=== PATIENT | male | born 1955 | race Caucasian/White ===

== ENCOUNTER 2023-12-30 07:57 | Inpatient (IN) | payer MEDICAID ==
[2023-12-30] VITALS (10 sets, daily range): BP systolic 126–180; BP diastolic 68–113; PULSE 56–104; RESP 16–20; TEMP 97.3–98; O2SAT 94–100
[~2023-12-30] VITALS: Ht 170.2 cm; Wt 58.5 kg
[2023-12-30] MEDS: FUROSEMIDE 40 MG/4 ML VIAL IVP ONE (08:40)
[2023-12-30 09:05] LABS: BLOOD GAS BASE EXCESS -0.2 mmol/L (-2.0-2.0); BLOOD GAS HCO3 23.3 mmol/L (22-26); BLOOD GAS O2 SAT% 99.3 % (92.0-98.5); BLOOD GAS PCO2 33.8 mmHg (35-45); BLOOD GAS PH 7.456 (7.35-7.45); BLOOD GAS PO2 148.1 mmHg (75-100)
[2023-12-30] MEDS ORDERED: cefTRIAXone 1,000 MG VIAL ONE (09:07)
[2023-12-30] MEDS ORDERED: AZITHROMYCIN 500 MG INJ VIAL IV ONE (09:07)
[2023-12-30] MEDS: AZITHROMYCIN 500 MG in DEXTROSE 5% 250 ML IV ONE (09:20)
[2023-12-30] MEDS: methylPREDNISolone SS 125 MG/2 ML VIAL IVP ONE (09:20)
[2023-12-30] MEDS: ALBUTEROL SULFATE/IPRATROPIU 3 ML SOL IH ONE (09:22)
[2023-12-30 09:24] LABS: BASOPHILS # (AUTO) 0.1 K/uL (0.00-0.22); BASOPHILS % (AUTO) 1.2 % (0.0-2.0); EOSINOPHILS # (AUTO) 0.3 K/uL (0-0.4); EOSINOPHILS % (AUTO) 3.1 % (0.0-4.0); HEMATOCRIT 31.4 % (36-52); HEMOGLOBIN 9.8 g/dL (12.0-18.0); LYMPHOCYTES # (AUTO) 0.7 K/uL (2.0-11.5); LYMPHOCYTES % (AUTO) 6.5 % (20.5-51.1); MEAN CORPUSCULAR HEMOGLOBIN 26 pg (27-31); MEAN CORPUSCULAR HGB CONC 31 g/dL (33-37); MEAN CORPUSCULAR VOLUME 83.7 fL (80-94); MONOCYTES # (AUTO) 0.7 K/uL (0.8-1.0); MONOCYTES % (AUTO) 6.5 % (1.7-9.3); NEUTROPHILS # (AUTO) 8.9 K/uL (1.8-7.7); NEUTROPHILS % (AUTO) 82.7 % (42.2-75.2); PLATELET COUNT (AUTO) 265 K/uL (140-450); RED BLOOD CELL COUNT(AUTO) 3.76 MIL/uL (4.20-6.10); RED CELL DISTRIBUTION WIDTH 18.3 % (11.6-13.7); WHITE BLOOD COUNT (AUTO) 10.7 K/uL (4.8-10.8)
[2023-12-30 09:46] LABS: ALBUMIN 2.6 g/dL (3.4-5.0); ANION GAP 14.5 (8-16); CALCIUM 7.8 mg/dL (8.5-10.1); CREATININE 3.8 mg/dL (0.6-1.3); POTASSIUM 4.5 mmol/L (3.5-5.1); TOTAL PROTEIN, SERUM 6.4 g/dL (6.4-8.2)
[2023-12-30 09:58] LABS: LACTIC ACID 0.9 mmol/L (0.4-2.0)
[2023-12-30] MEDS ORDERED: CLOP75TA55 PO (10:42)
[2023-12-30] MEDS ORDERED: FURO40TA9 PO (10:42)
[2023-12-30] MEDS ORDERED: SPIMDI INH (10:42)
[2023-12-30] MEDS ORDERED: NITR0.4T2 SL (10:42)
[2023-12-30] MEDS ORDERED: FLONAS NS (10:42)
[2023-12-30] MEDS ORDERED: ISOS20TA PO (10:42)
[2023-12-30] MEDS ORDERED: EZET10TA50 PO (10:42)
[2023-12-30] MEDS ORDERED: CARV6.25 PO (10:42)
[2023-12-30] MEDS ORDERED: DAPA10TA PO (10:42)
[2023-12-30] MEDS ORDERED: BUDE1AER IH (10:42)
[2023-12-30] MEDS ORDERED: ALBU0.0912 INH (10:42)
[2023-12-30] MEDS ORDERED: ASPI-1749 PO (10:42)
[2023-12-30] MEDS ORDERED: ATOR40TA PO (10:42)
[2023-12-30] MEDS ORDERED: ONDANSETRON 4 MG/2 ML VIAL IVP PRN (11:10)
[2023-12-30] MEDS ORDERED: HYDROcodone/APAP 5/325 MG 1 TAB TAB PO PRN (11:10)
[2023-12-30] MEDS ORDERED: ALBUTEROL 0.083% 2.5 MG/3 ML NEBU INH PRN (11:10)
[2023-12-30] MEDS ORDERED: LORazepam 1 MG TAB PO PRN (11:10)
[2023-12-30] MEDS: carvediloL 6.25 MG TAB PO SCH (11:38)
[2023-12-30] MEDS: ASPIRIN 81 MG TAB.CHEW PO SCH (11:39)
[2023-12-30] MEDS: CLOPIDOGREL 75 MG TAB PO SCH (11:39)
[2023-12-30] MEDS: ATORVASTATIN 20 MG TAB PO SCH (11:39)
[2023-12-30] MEDS: methylPREDNISolone SS 40 MG/ML VIAL IVP SCH (20:45)
[2023-12-31] VITALS (12 sets, daily range): BP systolic 103–123; BP diastolic 58–76; PULSE 68–89; RESP 18–20; TEMP 97–98.8; O2SAT 97–100
[2023-12-31 06:42] LABS: BASOPHILS # (AUTO) 0.1 K/uL (0.00-0.22); BASOPHILS % (AUTO) 0.7 % (0.0-2.0); HEMATOCRIT 28.9 % (36-52); HEMOGLOBIN 9.1 g/dL (12.0-18.0); LYMPHOCYTES # (AUTO) 0.4 K/uL (2.0-11.5); LYMPHOCYTES % (AUTO) 5.1 % (20.5-51.1); MEAN CORPUSCULAR HEMOGLOBIN 26 pg (27-31); MEAN CORPUSCULAR HGB CONC 31 g/dL (33-37); MEAN CORPUSCULAR VOLUME 83.2 fL (80-94); MONOCYTES # (AUTO) 0.1 K/uL (0.8-1.0); MONOCYTES % (AUTO) 1.6 % (1.7-9.3); NEUTROPHILS # (AUTO) 6.4 K/uL (1.8-7.7); NEUTROPHILS % (AUTO) 92.6 % (42.2-75.2); PLATELET COUNT (AUTO) 236 K/uL (140-450); RED BLOOD CELL COUNT(AUTO) 3.47 MIL/uL (4.20-6.10); WHITE BLOOD COUNT (AUTO) 6.9 K/uL (4.8-10.8)
[2023-12-31 06:52] LABS: ALBUMIN 2.5 g/dL (3.4-5.0); ANION GAP 14.6 (8-16); CALCIUM 7.5 mg/dL (8.5-10.1); MAGNESIUM 2.1 mg/dL (1.8-2.4); PHOSPHORUS 4.3 mg/dL (2.5-4.9); POTASSIUM 4.6 mmol/L (3.5-5.1); TOTAL BILIRUBIN 0.9 mg/dL (0.0-1.0)
[2023-12-31] MEDS: DOCUSATE SODIUM 100 MG GELCAP PO SCH (08:35)
[2023-12-31] MEDS: AZITHROMYCIN 250 MG TAB PO SCH (08:36)
[2023-12-31] MEDS: FUROSEMIDE 40 MG/4 ML VIAL IVP SCH (08:42)
[2023-12-31] MEDS: ZOLPIDEM 5 MG TAB PO PRN (20:50)
[2024-01-01] VITALS (7 sets, daily range): BP systolic 96–129; BP diastolic 55–71; PULSE 72–87; RESP 18; TEMP 97.6–98.2; O2SAT 97–99
[2024-01-01 07:13] LABS: BASOPHILS % (AUTO) 0.1 % (0.0-2.0); HEMATOCRIT 27.8 % (36-52); HEMOGLOBIN 8.8 g/dL (12.0-18.0); LYMPHOCYTES # (AUTO) 0.5 K/uL (2.0-11.5); LYMPHOCYTES % (AUTO) 5.3 % (20.5-51.1); MEAN CORPUSCULAR HEMOGLOBIN 26 pg (27-31); MEAN CORPUSCULAR HGB CONC 32 g/dL (33-37); MEAN CORPUSCULAR VOLUME 83.2 fL (80-94); MONOCYTES # (AUTO) 0.4 K/uL (0.8-1.0); MONOCYTES % (AUTO) 4.7 % (1.7-9.3); NEUTROPHILS # (AUTO) 8.5 K/uL (1.8-7.7); NEUTROPHILS % (AUTO) 89.9 % (42.2-75.2); PLATELET COUNT (AUTO) 219 K/uL (140-450); RED BLOOD CELL COUNT(AUTO) 3.34 MIL/uL (4.20-6.10); RED CELL DISTRIBUTION WIDTH 19.7 % (11.6-13.7); WHITE BLOOD COUNT (AUTO) 9.5 K/uL (4.8-10.8)
[2024-01-01 07:36] LABS: ALBUMIN 2.4 g/dL (3.4-5.0); CALCIUM 7.4 mg/dL (8.5-10.1); CARBON DIOXIDE 24.9 mmol/L (21-32); CREATININE 2.7 mg/dL (0.6-1.3); MAGNESIUM 2.1 mg/dL (1.8-2.4); PHOSPHORUS 4.6 mg/dL (2.5-4.9); POTASSIUM 4.9 mmol/L (3.5-5.1); TOTAL BILIRUBIN 0.5 mg/dL (0.0-1.0); TOTAL PROTEIN, SERUM 5.6 g/dL (6.4-8.2)
[2024-01-01] MEDS: VIT-B COMP/VIT-C/FOLIC ACID 1 TAB PO SCH (09:38)
[2024-01-01] MEDS ORDERED: PRED20TA5 PO (10:40)
[2024-01-01] MEDS ORDERED: AZIT250T11 PO (10:40)
== END 2024-01-01 15:10 | disposition home or self-care (01) | DRG 190 ==
LOC: MED 07:57 → MTU 11:13
PROVIDERS: ADMIT Student in an Organized Health Care Education/Training Program; ATTEND Student in an Organized Health Care Education/Training Program
PROC: 5A09357 Assistance with Respiratory Ventilation, Less than 24 Consecutive Hours, Continuous Positive Airway Pressure (ICD-10-PCS; principal; 2023-12-30)
PROC: 5A1D70Z Performance of Urinary Filtration, Intermittent, Less than 6 Hours Per Day (ICD-10-PCS; 2023-12-30)
PROC: 5A09357 Assistance with Respiratory Ventilation, Less than 24 Consecutive Hours, Continuous Positive Airway Pressure (ICD-10-PCS; 2023-12-31)
PROC: 5A1D70Z Performance of Urinary Filtration, Intermittent, Less than 6 Hours Per Day (ICD-10-PCS; 2023-12-31)
PROC: 5A09357 Assistance with Respiratory Ventilation, Less than 24 Consecutive Hours, Continuous Positive Airway Pressure (ICD-10-PCS; 2024-01-01)
DX: I21.4 Non-ST elevation (NSTEMI) myocardial infarction (principal); J96.21 Acute and chronic respiratory failure with hypoxia; D84.9 Immunodeficiency, unspecified; I13.2 Hypertensive heart and chronic kidney disease with heart failure and with stage 5 chronic kidney disease, or end stage renal disease; N18.6 End stage renal disease; E44.0 Moderate protein-calorie malnutrition; E11.22 Type 2 diabetes mellitus with diabetic chronic kidney disease; D64.9 Anemia, unspecified; Z68.20 Body mass index [BMI] 20.0-20.9, adult; E78.5 Hyperlipidemia, unspecified; I25.10 Atherosclerotic heart disease of native coronary artery without angina pectoris; I50.9 Heart failure, unspecified; J44.9 Chronic obstructive pulmonary disease, unspecified; R74.01 Elevation of levels of liver transaminase levels; Z95.1 Presence of aortocoronary bypass graft
CPT/HCPCS: 36415; 36600; 71045; 80053; 82803; 83605; 83735; 83880; 84100; 84484; 85025; 87040; 90935; 93005; 94640; 94660; 96365; 96375; 99291; J0456; J0696; J1644; J1940; J2919; J2920; J7060; Q0092